=== PATIENT | male | born 1955 | race Caucasian/White ===

== ENCOUNTER 2024-01-01 07:50 | Day surgery (SDC) | payer MEDICARE ==
[2023-12-30 12:16] LABS: EOSINOPHILS # (AUTO) 0.18 K/uL (0.00-0.70); EOSINOPHILS % (AUTO) 1.7 % (0.0-8.0); HEMATOCRIT 45.2 % (42-54); IMMATURE GRANULOCYTE ABSOLUTE 0.03 K/uL (0-1); LYMPHOCYTES # (AUTO) 1.7 K/uL (1.0-4.8); LYMPHOCYTES % (AUTO) 16.4 % (21.0-51.0); MEAN CORPUSCULAR HEMOGLOBIN 30.3 pg (27.0-33.0); MEAN CORPUSCULAR HGB CONC 34.5 g/dL (32.0-36.0); MEAN CORPUSCULAR VOLUME 87.8 fL (79-99); MONOCYTES # (AUTO) 0.9 K/uL (0.1-1.0); MONOCYTES % (AUTO) 8.4 % (3.0-13.0); NEUTROPHILS # (AUTO) 7.6 K/uL (1.8-7.7); NEUTROPHILS % (AUTO) 72.2 % (40.0-77.0); PLATELET COUNT (AUTO) 279 K/uL (130-400); RED BLOOD CELL COUNT(AUTO) 5.15 MIL/uL (4.50-6.20); RED CELL DISTRIBUTION WIDTH 12.8 % (11.0-15.5); WHITE BLOOD COUNT (AUTO) 10.5 K/uL (4.8-10.8)
[2023-12-30 12:27] LABS: POTASSIUM 3.9 mmol/L (3.5-5.1)
[2023-12-30 12:31] VITALS: BP 116/72; PULSE 71; RESP 16
[~2024-01-01] VITALS: Ht 172.7 cm; Wt 72.5 kg
[2024-01-01] VITALS (13 sets, daily range): BP systolic 96–124; BP diastolic 54–77; PULSE 54–68; RESP 12–20
[~2024-01-01 07:50] MED LIST: ASPI-1443 PO; ATOR10TA69 PO; PANT20TA18 PO
[2024-01-01] MEDS: LACTATED RINGERS 1000ML 1,000 ML IV ONE (08:38)
[2024-01-01] MEDS: CEFTRIAXONE 1G VIAL ONE (08:38)
[2024-01-01] MEDS ORDERED: DEXAMETHASONE SOD PHOSPHATE 10MG/ML 1ML VIAL ONE (08:43)
[2024-01-01] MEDS ORDERED: LIDOCAINE HCL MPF 1% 5ML VIAL ONE (08:43)
[2024-01-01] MEDS ORDERED: PROPOFOL 10 MG/ML 20ML VIAL IV ONE (08:44)
[2024-01-01] MEDS ORDERED: MIDAZOLAM HCL 1 MG/ML 2ML VIAL ONE (08:44)
[2024-01-01] MEDS ORDERED: ONDANSETRON 4MG INJ ONE (08:44)
[2024-01-01] MEDS ORDERED: FENTANYL CITRATE PF 50 MCG/1 ML 2ML VIAL ONE (08:44)
[2024-01-01] MEDS ORDERED: ROCURONIUM BROMIDE 10MG/1ML 5ML VL ONE (08:44)
[2024-01-01] MEDS ORDERED: GLYCOPYRROLATE 0.2 MG/ML 5 ML VIAL ONE (10:28)
[2024-01-01] MEDS ORDERED: KETOROLAC 30MG VIAL (30MG/ML) ONE (10:28)
[2024-01-01] MEDS ORDERED: PHENYLEPHRINE HCL 10 MG/ML 1ML VIAL IV ONE (10:28)
[2024-01-01] MEDS ORDERED: NEOSTIGMINE METHYLSULFATE 1MG/ML IV ONE (10:28)
[2024-01-01] MEDS: PHENAZOPYRIDINE HCL 200 MG TABLET ONE (12:05)
[2024-01-01] MEDS: PHENAZOPYRIDINE HCL 200 MG TABLET PO ONE (12:05)
== END 2024-01-01 13:00 | disposition home or self-care (01) ==
LOC: DAH 07:50
PROVIDERS: ATTEND Urology
DX: Z46.6 Encounter for fitting and adjustment of urinary device (principal); N20.0 Calculus of kidney; I10 Essential (primary) hypertension; I25.10 Atherosclerotic heart disease of native coronary artery without angina pectoris; K21.9 Gastro-esophageal reflux disease without esophagitis; E78.5 Hyperlipidemia, unspecified; Z82.49 Family history of ischemic heart disease and other diseases of the circulatory system; Z80.42 Family history of malignant neoplasm of prostate; Z90.49 Acquired absence of other specified parts of digestive tract; Z98.890 Other specified postprocedural states
CPT/HCPCS: 36415; 80048; 85025; 50590; 52310; 82948; A6260; A4663; J7030; J7120 ×2; J3010; J1100; J3490 ×3; J0696; J2250; J2704; J2405; J1885; J2710; J2371; A4358; A4215; A4223; A4222; A4221; A4510; A4600